=== PATIENT | male | born 1960 | race Caucasian/White ===

== ENCOUNTER → 2017-03-04 | Outpatient (CLI) | payer MEDICARE, MEDICAID ==
[2013-10-28 12:10] VITALS: BP 128/78
[~2017-03-04] MED LIST: ADVAIR 100/28 DISKU1 IH; CAVERJECT IC; CIALIS20 MG PO; GEODON80 MG PO; IMITREX100 MG PO; LAMICTAL PO; LAMICTAL200 MG PO; NAPROSYN500 MG PO; NORCO 325 MG-51 TA1 PO; NORCO 325 MG-51 TAB PO; PHENERGAN25 MG RC; TOPAMAX100 MG PO; TOPAMAX50 MG PO
== END ==
LOC: LAB 07:57
DX: Z00.00 Encounter for general adult medical examination without abnormal findings (principal); Z12.5 Encounter for screening for malignant neoplasm of prostate; Z13.220 Encounter for screening for lipoid disorders; F31.9 Bipolar disorder, unspecified; N52.9 Male erectile dysfunction, unspecified; J45.909 Unspecified asthma, uncomplicated